=== PATIENT | male | born 1975 | race Caucasian/White ===

== ENCOUNTER 2020-03-30 23:30 | Emergency (ER) | payer OTHER ==
[2020-03-31] MEDS ORDERED: Lidocaine 1% with EPINEPHrine 1:100,000 10 ML MDV INJECT ONE (00:20)
[2020-03-31] MEDS ORDERED: Lidocaine 1% with EPINEPHrine 1:100,000 20 ML MDV ONE (00:21)
[2020-03-31] MEDS ORDERED: Bacitracin Oint 1 GM U/D Packet TOP ONE (00:53)
--- NOTE | 2020-03-31 00:56 | EDM.PDOC ---
ED HPI GENERAL MEDICAL PROBLEM - General Chief Complaint: Upper Extremity Injury/Pain Stated Complaint: RIGHT ARM INJURY Time Seen by Provider: 03/31/20 00:12 - History of Present Illness INITIAL COMMENTS - FREE TEXT/NARRATIVE: CHIEF COMPLAINT(S): Right arm injury HISTORY OF PRESENT ILLNESS: This is a 44-year-old man without any significant past medical history who comes to the emergency department with a chief complaint of a right arm injury. But the patient states that he was working on something in his garage when he slipped on ice and hit something. He states that he noticed that it was bleeding. He denies any head injury or loss of consciousness. He denies any chest pain, shortness of breath, abdominal pain, nausea or vomiting. He states that he ate did have 2 beers. He states that his tetanus is up-to-date. He states that there is a cut on his right forearm but it is not really tender. He states that he applied some pressure to it and wrapped it. He denies any numbness or tingling or decreased dexterity of his right hand. REVIEW OF SYSTEMS: Constitutional: Denies fever, chills. Eyes: Denies eye pain Ears, Nose, Mouth, & Throat: Denies earache Cardiovascular: Denies chest pain Respiratory: Denies shortness of breath Gastrointestinal: Denies Nausea, vomiting, diarrhea, hematochezia. Genitourinary: Denies hematuria Skin: Positive for right forearm laceration Neurological: Denies blurred vision, headache, numbness, tingling, weakness Psychiatric: Denies depression PAST MEDICAL HISTORY: As per history of present illness and as reviewed below otherwise noncontributory. SURGICAL HISTORY: As per history of present illness and as reviewed below otherwise noncontributory. SOCIAL HISTORY: As per history of present illness and as reviewed below otherwise noncontributory. FAMILY HISTORY: As per history of present illness and as reviewed below otherwise noncontributory. EXAMINATION OF ORGAN SYSTEMS/BODY AREAS: Constitutional: Blood pressure is 132/93, heart rate 96, respiratory rate 16 with an oxygen saturation 96% on room air. Temperature 36.3 General: Overall well-appearing man who is in no acute distress Psychiatric: Appropriate mood and affect. Head: Normal cephalic atraumatic Eyes: No scleral icterus or conjunctival erythema pupils are equal round reactive to light. ENMT: Moist mucous membranes. No pharyngeal erythema Cardiovascular: Regular, rate, and rhythm. No gallops, murmurs, or rubs. Bilateral upper extremity pulses symmetric and intact. . Respiratory: Lungs clear to auscultation bilaterally. No wheezes, rales, or rhonchi. Gastrointestinal: Soft, non-tender, non-distended. Normoactive bowel sounds Genitourinary: No suprapubic tenderness Musculoskeletal: The patient has full dexterity of all of his fingers in the right hand. There is no wrist pain, anatomical snuffbox pain and no obvious deformity of the forearm. There is no tenderness in the forearm and no swelling. There is no elbow tenderness. Patient has full range of motion of his right shoulder. Skin: There is a 6 cm laceration to the posterior aspect of the right forearm with some muscle exposed. No tendon exposure no bone exposure. Neurological: Alert, GCS 15 waxer tender strength is equal bilaterally. Strength and sensation grossly intact in upper and lower extremities bilaterally MEDICAL DECISION MAKING AND COURSE IN THE ED WITH INTERPRETATION/REVIEW OF DIAGNOSTIC STUDIES: This is a 44-year-old man without any significant past medical history who comes to the emergency department with left forearm laceration after mechanical fall. At this time I do not believe any imaging is indicated. We will washout the wound and perform a laceration repair. The tetanus is up-to-date. The patient does not request any pain medications. Laceration Repair Note Repair of the 6 cm cm right forearm wound was done by myself. Wound was irrigated well with saline. Local anesthesia with lidocaine with epinephrine was performed. No foreign bodies were noted. 2 deep stitches with 4-0 Chromic Gut was used to keep the wound together. The wound was repaired with 8 4-0 directed nylon sutures. Wound edges approximated well. Bacitracin ointment and a sterile dressing were applied. Laceration repair I did discuss with patient need to return to the emergency department or his primary care physician for removal of the stitches in 5 to 7 days. He was amenable discharge at this time and had no further questions. He was given strict return precautions. DISPOSITION: The patient was discharged home in stable condition. The patient will follow up with primary care physician or emergency department in 5-7 CONDITION: Good PROCEDURES: Laceration repair FINAL IMPRESSION(S)/DIAGNOSES: 1. Acute right forearm laceration repair status post suture repair 2. Acute mechanical fall without head injury Chris Guy M.D. R forearm Pain Score (Numeric/FACES): 3 - Related Data Allergies Allergy/AdvReac Type Severity Reaction Status Date / Time No Known Allergies Allergy Verified 03/30/20 23:46 Home Meds: Home Meds . [No Known Home Meds] 03/30/20 [History] Past Medical History - Past Health History Medical/Surgical History: Denies Medical/Surgical History - Infectious Disease History Infectious Disease History: Reports: Chicken Pox Social & Family History - Tobacco Use Tobacco Use Status *Q: Never Tobacco User - Recreational Drug Use Recreational Drug Use: No Review of Systems - Review of Systems Review Of Systems: See Below ED EXAM, GENERAL - Physical Exam Exam: See Below Course - Vital Signs Last Recorded V/S: Last Vital Signs Temp 36.3 C 03/30/20 23:44 Pulse 96 03/30/20 23:44 Resp 16 03/30/20 23:44 BP 132/93 H 03/30/20 23:44 Pulse Ox 96 03/30/20 23:44 - Orders/Labs/Meds Meds: Medications Discontinued Medications Generic Name Dose Route Start Last Admin Trade Name Toddq PRN Reason Stop Dose Admin Bacitracin 1 dose 03/31/20 00:53 03/31/20 01:01 Bacitracin Oint 1 Gm TOP 03/31/20 00:54 1 dose ONETIME ONE Administration Lidocaine/Epinephrine 10 ml 03/31/20 00:20 03/31/20 01:03 Xylocaine 1% With Epinephrine 1:100,000 INJECT 03/31/20 00:21 Not Given ONETIME ONE Lidocaine/Epinephrine Confirm 03/31/20 00:21 03/31/20 01:03 Xylocaine 1% With Epinephrine 1:100,000 Administered 03/31/20 00:22 Not Given Dose 20 ml .ROUTE .STK-MED ONE Lidocaine/Epinephrine 20 ml 03/31/20 01:03 03/31/20 01:05 Xylocaine 1% With Epinephrine 1:100,000 INJECT 03/31/20 01:04 20 ml ONETIME ONE Administration Departure - Departure Time of Disposition: 00:53 Disposition: Home, Self-Care 01 Condition: Fair Clinical Impression: Laceration - Discharge Information *PRESCRIPTION DRUG MONITORING PROGRAM REVIEWED*: No *COPY OF PRESCRIPTION DRUG MONITORING REPORT IN PATIENT LENORE: No Instructions: Laceration Care, Adult, [id number] Referrals: PCP,None [Primary Care Provider] - Forms: ED Department Discharge Additional Instructions: Your evaluated today on an emergent basis. At this time you do have a laceration to your right forearm. We did place stitches. These need to be removed within 5 to 7 days. You are welcome to follow-up here in the emergency department or your primary care physician. If you notice any pus drainage, redness that is spreading please return to the emergency department. [facility] [address] [place], [place] [id number] [place] [address] The patient is informed of any results of their evaluation and diagnostic workup and all questions are answered. They are given discharge instructions and return precautions. The patient is stable for discharge. The patient states they understand and agree with the plan and that they will return if their symptoms get worse or if they have any new concerns. The following information is given to patients seen in the emergency department who are being discharged to home. This information is to outline your options for follow-up care. We provide all patients seen in our emergency department with a follow-up referral. The need for follow-up, as well as the timing and circumstances, are variable depending upon the specifics of your emergency department visit. If you don't have a primary care physician on staff, we will provide you with a referral. We always advise you to contact your personal physician following an emergency department visit to inform them of the circumstance of the visit and for follow-up with them and/or the need for any referrals to a consulting s pecialist. The emergency department will also refer you to a specialist when appropriate. This referral assures that you have the opportunity for follow-up care with a specialist. All of these measure are taken in an effort to provide you with optimal care, which includes your follow-up. Under all circumstances we always encourage you to contact your private physician who remains a resource for coordinating your care. When calling for follow-up care, please make the office aware that this follow-up is from your recent emergency room visit. If for any reason you are refused follow-up, please contact the [facility] Emergency Department at and asked to speak to the emergency department charge nurse. Sepsis Event Note (ED) - Evaluation Sepsis Screening Result: No Definite Risk - Focused Exam Vital Signs: Vital Signs Temp Pulse Resp BP Pulse Ox 03/30/20 23:44 36.3 C 96 16 132/93 H 96
[2020-03-31] MEDS ORDERED: Lidocaine 1% with EPINEPHrine 1:100,000 20 ML MDV INJECT ONE (01:03)
== END 2020-03-31 01:05 | disposition home or self-care (01) ==
LOC: MW.ED 23:30
DX: S51.811A Laceration without foreign body of right forearm, initial encounter (principal); W00.0XXA Fall on same level due to ice and snow, initial encounter
CPT/HCPCS: 12002; 12014; 12032; 99282; 99282-25